=== PATIENT | male | born 1990 | race Caucasian/White ===

== ENCOUNTER 2017-06-08 14:13 | Emergency (ER) | payer SELFPAY ==
[~2017-06-08] VITALS: Ht 172.7 cm; Wt 91.0 kg
[2017-06-08 14:17] VITALS: BP 154/89
== END 2017-06-08 17:25 | disposition left against medical advice (07) ==
LOC: ER 17:24
DX: R51 Headache (principal); Z53.21 Procedure and treatment not carried out due to patient leaving prior to being seen by health care provider